=== PATIENT | female | born 1975 | race Caucasian/White ===

== ENCOUNTER 2017-07-06 11:12 | Emergency (ER) | payer BC ==
[2017-07-06 11:19] VITALS: BP 134/83
[2017-07-06] MEDS ORDERED: BACLOFEN 10 MG TABLET PO STA (13:21)
[2017-07-06] MEDS ORDERED: LORazepam 0.5 MG TABLET PO STA (14:23)
[2017-07-06] MEDS ORDERED: LORazepam 0.5 MG TABLET ONE (14:30)
--- NOTE | 2017-07-06 14:37 | ED Physician Documentation ---
History of Present Illness - Stated complaint Stated Complaint: REACTION TO SUPPLEMENT - Chief complaint Chief Complaint: General - History obtained from History obtained from: Patient - History of Present Illness Timing: How many days ago (3) - Additonal information Additional information: 42-year-old female has been taking phenbut for the past year. She is abruptly discontinued taking approximately 900 mg twice per day. She tapered this over a two-week period of time and discontinued completely yesterday. She was beginning to feel symptoms of anxiety and shakiness 2 days ago. She has profound feelings of shakiness and anxiety now. She is concerned about continued withdrawal symptoms. Review of Systems Constitutional: reports: Chills, Fatigue, Sweats. denies: Fever Eyes: denies: Decreased vision Ears: denies: Ear pain Nose: denies: Rhinorrhea / runny nose, Congestion Throat: denies: Sore throat Cardiac: denies: Chest pain / pressure, Palpitations Respiratory: denies: Dyspnea, Cough GI: denies: Abdominal Pain, Nausea, Vomiting : denies: Dysuria, Frequency Skin: denies: Rash, Lesions Musculoskeletal: denies: Neck pain, Back pain, Extremity pain Neurologic: reports: Other (shaking). denies: Generalized weakness, Focal weakness, Numbness, Headache, Head injury, LOC Psychiatric: reports: Anxiety PD PAST MEDICAL HISTORY - Past Medical History Past Medical History: Yes Cardiovascular: None Respiratory: None Neuro: Headache/migraine Endocrine/Autoimmune: None GI: None AREA COUNSELOR: None : None HEENT: None Psych: Depression, Anxiety Musculoskeletal: Fibromyalgia Derm: None - Past Surgical History Past Surgical History: No - Present Medications Home Medications: Ambulatory Orders Medication Instructions Recorded Confirmed Alprazolam [Xanax] 1 mg PO DAILY 07/06/17 07/06/17 Baclofen 10 mg PO Q8HR PRN #20 tablet 07/06/17 Lorazepam [Ativan] 1 mg PO Q8HR PRN #20 tablet 07/06/17 - Allergies Allergies/Adverse Reactions: Allergies Allergy/AdvReac Type Severity Reaction Status Date / Time No Known Drug Allergies Allergy Verified 07/06/17 11:19 - Social History Does the pt smoke?: No Smoking Status: Never smoker Does the pt drink ETOH?: No Does the pt have substance abuse?: No - Immunizations Immunizations are current?: Yes - POLST Patient has POLST: No PD ED PE NORMAL - Vitals Vital signs reviewed: Yes (tachy and hypertensive) - General General: Well developed/nourished - HEENT HEENT: Atraumatic, PERRL, EOMI - Neck Neck: Supple, no meningeal sign, No bony TTP - Cardiac Cardiac: RRR, No murmur - Respiratory Respiratory: No respiratory distress, Clear bilaterally - Abdomen Abdomen: Soft, Non tender - Back Back: No CVA TTP, No spinal TTP - Derm Derm: Normal color, Warm and dry, No rash - Extremities Extremities: No deformity, No edema - Neuro Neuro: No motor deficit, No sensory deficit - Psych Psych: Normal mood, Normal affect Results - Vitals Vitals: Vital Signs - 24 hr 07/06/17 11:14 Temperature 36.8 C Heart Rate 102 H Respiratory 18 Rate Blood Pressure 134/83 H O2 Saturation 100 Oxygen O2 Source Room air PD MEDICAL DECISION MAKING - ED course Complexity details: considered differential, d/w patient ED course: 42-year-old female with symptoms of withdrawal from a phenibut. She is administered baclofen with some improvement and further administered Ativan. Departure - Departure Disposition: 01 Home, Self Care Clinical Impression: Withdrawal from sedative drug Condition: Stable Instructions: ED Withdrawal Benzodiazepine Follow-Up: [facility] [Provider Group] Prescriptions: Baclofen 10 mg PO Q8HR PRN #20 tablet PRN Reason: anxiety, shaking Lorazepam [Ativan] 1 mg PO Q8HR PRN #20 tablet PRN Reason: withdrawal symptoms
== END 2017-07-06 14:10 | disposition home or self-care (01) ==
LOC: ED 11:12
DX: F13.239 Sedative, hypnotic or anxiolytic dependence with withdrawal, unspecified (principal); F41.9 Anxiety disorder, unspecified; T42.6X5A Adverse effect of other antiepileptic and sedative-hypnotic drugs, initial encounter
CPT/HCPCS: 99283; A9270